=== PATIENT | female | born 1945 | race Caucasian/White ===

== ENCOUNTER 2022-09-30 20:49 | Emergency (ER) | payer OTHER, MEDICARE ==
[~2022-09-30] VITALS: Ht 149.9 cm; Wt 35.4 kg
[2022-09-30 21:00] VITALS: O2SAT 97
[2022-09-30] MEDS ORDERED: PIPERACILLIN/TAZOBACTAM 3.375 GM VIAL ONE (21:16)
[2022-09-30] MEDS ORDERED: AUGMENTIN 500-1 EACH PO (22:02)
== END 2022-09-30 22:26 | disposition home or self-care (01) ==
LOC: FSED 20:54
DX: S51.852A Open bite of left forearm, initial encounter (principal); L03.114 Cellulitis of left upper limb; W54.0XXA Bitten by dog, initial encounter; Y92.89 Other specified places as the place of occurrence of the external cause
CPT/HCPCS: 80053; 85025; 99283; J2543

== ENCOUNTER 2024-02-26 15:38 | Emergency (ER) | payer MEDICARE ==
[~2024-02-26] VITALS: Ht 149.9 cm; Wt 35.4 kg
[~2024-02-26 15:38] MED LIST: AUGMENTIN 500-1 EACH PO
[2024-02-26 15:52] VITALS: PULSE 69; RESP 16; TEMP 98.4; O2SAT 97
[2024-02-26] MEDS ORDERED: LIDOCAINE HCL 1% LOCAL INJ 20 ML VIAL INJ ONE (17:00)
[2024-02-26] MEDS ORDERED: CEPHALEXIN500 MG PO (18:25)
== END 2024-02-26 19:14 | disposition home or self-care (01) ==
LOC: ER 16:34
DX: M79.642 Pain in left hand (principal); M79.641 Pain in right hand; S62.631B Displaced fracture of distal phalanx of left index finger, initial encounter for open fracture; S60.511A Abrasion of right hand, initial encounter; W01.0XXA Fall on same level from slipping, tripping and stumbling without subsequent striking against object, initial encounter; Y93.01 Activity, walking, marching and hiking; Y92.89 Other specified places as the place of occurrence of the external cause; J44.9 Chronic obstructive pulmonary disease, unspecified; K21.9 Gastro-esophageal reflux disease without esophagitis; M54.9 Dorsalgia, unspecified; G89.29 Other chronic pain; M41.9 Scoliosis, unspecified
CPT/HCPCS: 73130; 99284; J0690